=== PATIENT | female | born 1960 | race Caucasian/White ===

== ENCOUNTER → 2021-06-09 | Outpatient (CLI) | payer OTHER | END | disposition home or self-care (01) | LOC: LAB 11:17 → LAB SHORT 11:17 | DX: D22.62 Melanocytic nevi of left upper limb, including shoulder (principal) | CPT/HCPCS: 88305 ==

== ENCOUNTER 2024-08-28 05:50 | Emergency (ER) | payer OTHER ==
[~2024-08-28] VITALS: Ht 160 cm; Wt 61.2 kg
[2024-08-28 10:26] LABS: BASOPHILS ABSOLUTE AUTO 0.07 K/mm3 (0.00-0.23); BASOPHILS PERCENT AUTO 1 % (0-2); EOSINOPHILS ABSOLUTE AUTO 0.01 K/mm3 (0.00-0.68); EOSINOPHILS PERCENT AUTO 0 % (0-6); Hematocrit 44.4 % (33.0-51.0); Hemoglobin 16.3 g/dL (11.5-16.0); IMMATURE GRAN ABSOLUTE AUTO 0.04 K/mm3 (0.00-0.10); IMMATURE GRAN PERCENT AUTO 0 % (0-1); LYMPHOCYTES ABSOLUTE AUTO 1.57 K/mm3 (0.84-5.20); LYMPHOCYTES PERCENT AUTO 15 % (21-46); MONOCYTES ABSOLUTE AUTO 0.73 K/mm3 (0.16-1.47); MONOCYTES PERCENT AUTO 7 % (4-13); Mean Corpuscular HGB 34.6 pg (26.0-34.0); Mean Corpuscular HGB Conc 36.7 g/dL (31.5-36.5); Mean Corpuscular Volume 94 fL (80-100); Mean Platelet Volume 9.1 fL (9.1-12.4); NEUTROPHILS PERCENT AUTO 77 % (41-73); Platelet Count 337 K/mm3 (150-400); RDW Standard Deviation 45.5 fL (35.1-46.3); Red Blood Cell Count 4.71 M/mm3 (3.80-5.20); White Blood Cell Count 10.52 K/mm3 (4.00-11.30)
[2024-08-28 10:50] LABS: Bilirubin, Total 1.5 mg/dL (0.1-1.0); Bun/Creatinine Ratio 14.5 (12.0-20.0); Calcium, Blood 9.9 mg/dL (8.5-10.1); Creatinine, Blood 1.17 mg/dL (0.40-1.00); Globulin, Blood 3.9 g/dL (2.2-4.0); Magnesium, Blood 1.6 mg/dL (1.6-2.4); Potassium, Blood 2.9 mmol/L (3.5-5.5); Total Protein, Blood 7.9 g/dL (6.4-8.2)
[2024-08-28] MEDS ORDERED: METOPROLOL SUCC25 MG PO (11:37)
[2024-08-28] MEDS ORDERED: Lisinopril-Hct1 EAC4 PO (11:37)
[2024-08-28] MEDS ORDERED: PAXIL2010 PO (11:38)
[2024-08-28] MEDS ORDERED: Magnesium Sulf 2 GM/Water 50ML 50 ML IV ONE (11:40)
[2024-08-28] MEDS ORDERED: D5W-NS 1,000 ML IV SCH (11:40)
[2024-08-28] MEDS ORDERED: Potassium Chl 20MEQ/Water100ML 300 ML IV ONE (11:40)
[2024-08-28 12:36] LABS: Influenza A, PCR NEGATIVE (NEGATIVE); Influenza B, PCR NEGATIVE (NEGATIVE); Resp Syncytial Virus, PCR NEGATIVE (NEGATIVE); SARS-Cov-2 (COVID-19) PCR, MMC NEGATIVE (NEGATIVE)
[2024-08-28] MEDS ORDERED: Ondansetron HCl 2 MG / ML 2ML Vial IV ONE (13:15)
[2024-08-28] MEDS ORDERED: NS 1,000 ML IV ONE (13:49)
[2024-08-28] MEDS ORDERED: NS 1,000 ML IV SCH (14:00)
[2024-08-28] MEDS ORDERED: Ketorolac Tromethamine 30mg Vial IV ONE (14:20)
[2024-08-28] MEDS ORDERED: Gabapentin 300 MG Cap PO ONE (14:20)
[2024-08-28] MEDS ORDERED: GABA300 PO (15:20)
[2024-08-28] MEDS ORDERED: VALA500 PO (15:20)
[2024-08-28] MEDS ORDERED: ONDA4ODT MM (15:20)
[2024-08-28] MEDS ORDERED: PROM12.5S PR (15:20)
[2024-08-28] MEDS ORDERED: METO10 PO (15:20)
[2024-08-28] MEDS ORDERED: Potassium Chloride 20 MEQ TabCR PO ONE (16:00)
[2024-08-28 18:45] VITALS: BP 117/79
== END 2024-08-28 19:00 ==
LOC: ER 05:50
PROVIDERS: Physician Assistant
DX: C64.1 Malignant neoplasm of right kidney, except renal pelvis (principal); N17.9 Acute kidney failure, unspecified; E86.0 Dehydration; E87.6 Hypokalemia; N83.202 Unspecified ovarian cyst, left side; B00.1 Herpesviral vesicular dermatitis; R11.2 Nausea with vomiting, unspecified; K21.9 Gastro-esophageal reflux disease without esophagitis; I10 Essential (primary) hypertension; Z79.899 Other long term (current) drug therapy
CPT/HCPCS: 0241U; 71046; 74177; 76705; 80053; 83735; 85025; 93005; 93010; 96365-59; 96366; 96367; 96375; 99284-25; A9270; J1885; J3475; J3480; J7030; J7042; Q9967

== ENCOUNTER → 2024-09-09 | Outpatient (CLI) | payer OTHER ==
[~2024-09-09] MED LIST: CEPHALEXIN500 MG PO; GABA300 PO; Lisinopril-Hct1 EAC4 PO; METO10 PO; METOPROLOL SUCC25 MG PO; ONDA4ODT MM; PAXIL2010 PO; PROM12.5S PR; VALA500 PO
[2024-09-09 13:23] LABS: BASOPHILS ABSOLUTE AUTO 0.08 K/mm3 (0.00-0.23); BASOPHILS PERCENT AUTO 1 % (0-2); EOSINOPHILS ABSOLUTE AUTO 0.11 K/mm3 (0.00-0.68); EOSINOPHILS PERCENT AUTO 1 % (0-6); Hematocrit 41.6 % (33.0-51.0); Hemoglobin 15.2 g/dL (11.5-16.0); IMMATURE GRAN ABSOLUTE AUTO 0.01 K/mm3 (0.00-0.10); IMMATURE GRAN PERCENT AUTO 0 % (0-1); LYMPHOCYTES ABSOLUTE AUTO 1.83 K/mm3 (0.84-5.20); LYMPHOCYTES PERCENT AUTO 23 % (21-46); MONOCYTES ABSOLUTE AUTO 0.53 K/mm3 (0.16-1.47); MONOCYTES PERCENT AUTO 7 % (4-13); Mean Corpuscular HGB 34.5 pg (26.0-34.0); Mean Corpuscular HGB Conc 36.5 g/dL (31.5-36.5); Mean Corpuscular Volume 94 fL (80-100); NEUTROPHILS ABSOLUTE AUTO 5.34 K/mm3 (1.96-9.15); NEUTROPHILS PERCENT AUTO 68 % (41-73); Platelet Count 257 K/mm3 (150-400); RDW Standard Deviation 47.3 fL (35.1-46.3); Red Blood Cell Count 4.41 M/mm3 (3.80-5.20)
[2024-09-09 13:38] LABS: Albumin, Blood 3.5 g/dL (3.4-5.0); Albumin/Globulin Ratio 0.9 (0.8-1.8); Bilirubin, Total 1.5 mg/dL (0.1-1.0); Bun/Creatinine Ratio 13.6 (12.0-20.0); Calcium, Blood 9.4 mg/dL (8.5-10.1); Creatinine, Blood 1.32 mg/dL (0.40-1.00); Magnesium, Blood 1.3 mg/dL (1.6-2.4); Potassium, Blood 3.9 mmol/L (3.5-5.5); Total Protein, Blood 7.5 g/dL (6.4-8.2)
== END ==
LOC: LAB SHORT 13:18 → LAB 13:18
PROVIDERS: Family Medicine
DX: R53.83 Other fatigue (principal); N39.0 Urinary tract infection, site not specified; Z86.39 Personal history of other endocrine, nutritional and metabolic disease
CPT/HCPCS: 80053; 83735; 85025; 87077; 87086; 87186

== ENCOUNTER 2024-09-14 14:24 | Inpatient (IN) | payer OTHER ==
[~2024-09-14] VITALS: Ht 160 cm; Wt 54.2 kg
[~2024-09-14 14:24] MED LIST changes: -CEPHALEXIN500 MG PO; -K-Phos Origina500 MG PO; -MAGNESIUM OXID500 MG PO; -MIRT15ST PO; -POTA10T PO; -VITAMIN B-1100 M1 PO
[2024-09-14] MEDS ORDERED: NS 1,000 ML IV SCH ×3 (14:55→18:10)
[2024-09-14] MEDS ORDERED: CEPHALEXIN500 MG PO (15:01)
[2024-09-14] MEDS ORDERED: CefTRIAXone Sodium 1,000 MG in NS 100 ML IV ONE (15:45)
[2024-09-14] MEDS ORDERED: Ondansetron HCl 2 MG / ML 2ML Vial IV ONE (15:45)
[2024-09-14 17:13] LABS: Source, Urine Clean Catch
[2024-09-14 17:18] LABS: Appearance, Urine Clear (Clear); Bilirubin, Urine Neg (Neg); Blood, Urine 3+ (Neg); Color, Urine Amber (P-Yellow); Glucose Qualitative, Urine Neg (Neg); Ketones, Urine Neg (Neg); Leukocyte Esterase, Urine 2+ (Neg); Nitrite, Urine Neg (Neg); Protein, Urine 2+ (Neg); Specific Gravity, Urine 1.025 (1.003-1.022); Urobilinogen, Urine NORM (Normal)
[2024-09-14 17:24] LABS: Bacteria Few /hpf; Squamous Epithelial Cells Mod /hpf (Few)
[2024-09-14 17:25] LABS: Renal Epithelial Rare /hpf (0-Rare)
[2024-09-14] MEDS ORDERED: Potassium Chl 20MEQ/Water100ML 100 ML IV ONE (17:35)
[2024-09-14] MEDS ORDERED: Mag Sulfate 1 GM/D5% 100ML 100 ML IV ONE (17:35)
[2024-09-14] MEDS ORDERED: FLU VACC TS2024-25(6MOS UP)/PF 45 MCG/0.5 ML SYRINGE IM SCH (18:10)
[2024-09-14] MEDS ORDERED: Ondansetron HCl 2 MG / ML 2ML Vial IV PRN (18:10)
[2024-09-14] MEDS ORDERED: Zoledronic Acid 4 MG in NS 100 ML IV ONE (18:25)
[2024-09-14] MEDS ORDERED: Enoxaparin 30 MG/0.3 ML SYR SC SCH (19:00)
[2024-09-14] MEDS ORDERED: Calcitonin Salmon 200 IU/ML 2ML Vial SC SCH (20:00)
[2024-09-14 22:36] VITALS: BP 143/88
[2024-09-15 04:14] VITALS: BP 147/85
--- NOTE | 2024-09-15 04:25 | NUR ---
SHIFT SUMMARY: EDMOND IS A&OX4. VSS, NO ACUTE EVENTS THIS SHIFT. SHE IS A STANDBY ASSIST TO THE BATHROOM, NO EVENTS ON TELE, IV TO BILATERAL ACs PATENT, IV FLUIDS INFUSING PER ORDER. NPO ORDER IN PLACE, NO PO INTAKE SINCE ADMISSION TO THE FLOOR THIS SHIFT. SHE IS PLEASANT AND COOPERATIVE, USES THE CALL LIGHT APPROPRIATELY. SHE IS LYING IN BED WITH THE CALL LIGHT IN REACH, BED IN LOWEST POSITION. WILL GIVE REPORT TO DAY SHIFT RN.
[2024-09-15 04:57] LABS: Hematocrit 39.6 % (33.0-51.0); Hemoglobin 13.9 g/dL (11.5-16.0); Mean Corpuscular HGB 34.8 pg (26.0-34.0); Mean Corpuscular HGB Conc 35.1 g/dL (31.5-36.5); Mean Corpuscular Volume 99 fL (80-100); Mean Platelet Volume 10.9 fL (9.1-12.4); Platelet Count 69 K/mm3 (150-400); RDW Coefficient Variation 14.5 % (11.7-14.2); RDW Standard Deviation 52.2 fL (35.1-46.3); White Blood Cell Count 22.04 K/mm3 (4.00-11.30)
[2024-09-15 05:15] LABS: Albumin, Blood 2.6 g/dL (3.4-5.0); Albumin/Globulin Ratio 0.9 (0.8-1.8); Bilirubin, Total 2.4 mg/dL (0.1-1.0); Bun/Creatinine Ratio 23.7 (12.0-20.0); Creatinine, Blood 1.73 mg/dL (0.40-1.00); Potassium, Blood 3.4 mmol/L (3.5-5.5); Total Protein, Blood 5.6 g/dL (6.4-8.2)
[2024-09-15 05:35] LABS: Calcium, Blood 11.5 mg/dL (8.5-10.1)
[2024-09-15 06:56] LABS: BAND PERCENT MAN 2 % (0-8); BASOPHILS ABSOLUTE MAN 0.22 K/mm3 (0.00-0.23); BASOPHILS PERCENT MAN 1 % (0-2); EOSINOPHILS PERCENT MAN 0 % (0-6); LYMPHOCYTES ABSOLUTE MAN 0.88 K/mm3 (0.84-5.20); LYMPHOCYTES PERCENT MAN 4 % (21-46); MONOCYTES ABSOLUTE MAN 0.88 K/mm3 (0.16-1.47); MONOCYTES PERCENT MAN 4 % (4-13); NEUTROPHILS ABSOLUTE MAN 20.05 K/mm3 (1.96-9.15); SEG NEUTROPHILS PERCENT MAN 89 % (41-73); TOTAL CELLS COUNTED 100
[2024-09-15 07:17] VITALS: BP 149/83
[2024-09-15] MEDS ORDERED: Magnesium Sulf 2 GM/Water 50ML 50 ML IV STA ×2 (07:44→11:26)
[2024-09-15 08:43] LABS: Bilirubin, Direct 0.7 mg/dL (0.0-0.3); Bilirubin, Indirect 1.7 mg/dL (0.1-0.7); Bilirubin, Total 2.4 mg/dL (0.1-1.0); Phosphorus, Blood 1.9 mg/dL (2.5-4.9)
[2024-09-15] MEDS ORDERED: Gabapentin 100 MG Cap PO SCH (09:00)
[2024-09-15] MEDS ORDERED: Lactobacil 2-S.Thermo-Bifido 1 1 Cap PO SCH (09:00)
[2024-09-15] MEDS ORDERED: Metoprolol Succinate 25 MG TABCR PO SCH (09:00)
[2024-09-15 09:19] LABS: Magnesium, Blood 1.1 mg/dL (1.6-2.4)
[2024-09-15] MEDS ORDERED: Calcitonin Salmon 200 IU/ML 2ML Vial SC SCH (10:02)
[2024-09-15] MEDS ORDERED: Potassium Phosphate Dibasic 30 MM in Dextrose 5% 500 ML IV STA (14:43)
[2024-09-15 14:50] VITALS: BP 135/73
[2024-09-15] MEDS ORDERED: CefTRIAXone Sodium 1,000 MG in NS 100 ML IV SCH (16:00)
--- NOTE | 2024-09-15 17:12 | NUR ---
SHIFT SUMMARY A/O X4. ABLE TO AMBULATE TO BATHROOM WITH SBA. RUNNING ISOTONIC FLUIDS THIS SHIFT. RECEIVED 4 G TOTAL MAG THIS SHIFT, RECEIVING K PHOS AND ABX. STATES SHE FEELS BETTER THAN ON ADMISSION. ROOM AIR. TELE READS SINUS, NO CALLS OR CONCERNS NOTED. BLOOD CX NEG DAY 1. URINE CX GROWTH TOO SMALL TO IDENTIFY. HAD US RESULTED THIS AM. LABS ORDERED FOR AM DRAW. NO C/O PAIN OR NAUSEA. DIET ORDERED, NOT A LOT OF INTAKE THIS SHIFT, PATIENT NOT INTERESTED. DRINKING WELL. ABLE TO MAKE NEEDS KNOWN. CALL LIGHT IN REACH, CARES ONGOING
[2024-09-15 19:15] VITALS: BP 140/76
[2024-09-15] MEDS ORDERED: Acetaminophen 325 MG TABLET PO PRN (20:45)
--- NOTE | 2024-09-15 20:56 | NUR ---
THIS PHARMACEUTICAL OPERATOR CALLED ON-CALL HOSPITALIST, NEW ORDER RECEIVED FOR TYLENOL PRN. SEE EMAR.
[2024-09-16 04:14] VITALS: BP 130/69
[2024-09-16] MEDS ORDERED: LORazepam 0.5 MG Tab PO ONE (04:35)
--- NOTE | 2024-09-16 04:35 | NUR ---
PT C/O ANXIETY 05/29. THIS EMERGENCY ROOM CLINICIAN CALLED ON-CALL HOSPITALIST DR. MAX. NEW T-ORDER: "ATIVAN 0.5MG PO ONCE". ENTERED TO [employer], SEE EMAR. NO ADDITIONAL NEW ORDERS AT THIS TIME.
--- NOTE | 2024-09-16 04:40 | NUR ---
SHIFT SUMMARY PT IS A&O X4, PLEASANT, COOPERATIVE WITH CARE. @1718 PT C/O ANXIETY 05/29 AND REPORTS A RECENT HX OF PANIC ATTACKS. PT REPORTS STAYING AWAKE MOST OF THE NIGHT D/T ANXIETY. THIS MALE IMPERSONATOR CALLED ON-CALL HOSPITALIST . ONE TIME ORDER OF ATIVAN 0.5MG PO ENTERED TO [employer]. PT C/O 06/29 RIGHT FLANK& EPIGASTRIC PAIN. AT NEW ORDER WAS RECEIVED FROM ON-CALL HOSPITALIST FOR TYLENOL PRN. WILL ADMINISTER WHEN ATIVAN IS AN ACTIVE ORDER. NO PO INTAKE DURING THIS SHIFT.TELE: SR @17. NO ACUTE EVENTS DURING THIS SHIFT. BED AT THE LOWEST POSITION, CALL LIGHT W/I REACH. PT IS ABLE TO MAKE HER NEEDS KNOWN.
[2024-09-16 06:07] LABS: BASOPHILS ABSOLUTE AUTO 0.02 K/mm3 (0.00-0.23); BASOPHILS PERCENT AUTO 0 % (0-2); EOSINOPHILS ABSOLUTE AUTO 0.01 K/mm3 (0.00-0.68); EOSINOPHILS PERCENT AUTO 0 % (0-6); Hematocrit 33.1 % (33.0-51.0); Hemoglobin 11.8 g/dL (11.5-16.0); IMMATURE GRAN PERCENT AUTO 1 % (0-1); LYMPHOCYTES ABSOLUTE AUTO 1.26 K/mm3 (0.84-5.20); LYMPHOCYTES PERCENT AUTO 8 % (21-46); MONOCYTES ABSOLUTE AUTO 1.29 K/mm3 (0.16-1.47); MONOCYTES PERCENT AUTO 8 % (4-13); Mean Corpuscular HGB 34.9 pg (26.0-34.0); Mean Corpuscular HGB Conc 35.6 g/dL (31.5-36.5); Mean Corpuscular Volume 98 fL (80-100); Mean Platelet Volume 11.6 fL (9.1-12.4); NEUTROPHILS ABSOLUTE AUTO 12.89 K/mm3 (1.96-9.15); NEUTROPHILS PERCENT AUTO 83 % (41-73); RDW Coefficient Variation 14.7 % (11.7-14.2); Red Blood Cell Count 3.38 M/mm3 (3.80-5.20); White Blood Cell Count 15.57 K/mm3 (4.00-11.30)
[2024-09-16 06:13] LABS: Platelet Count 45 K/mm3 (150-400)
[2024-09-16 06:34] LABS: Albumin, Blood 2.3 g/dL (3.4-5.0); Albumin/Globulin Ratio 0.8 (0.8-1.8); Bilirubin, Total 2.3 mg/dL (0.1-1.0); Bun/Creatinine Ratio 30.7 (12.0-20.0); Creatinine, Blood 1.27 mg/dL (0.40-1.00); Magnesium, Blood 1.5 mg/dL (1.6-2.4); Phosphorus, Blood 1.7 mg/dL (2.5-4.9); Total Protein, Blood 5.3 g/dL (6.4-8.2)
[2024-09-16 06:35] LABS: Calcium, Blood 8.7 mg/dL (8.5-10.1)
--- NOTE | 2024-09-16 06:43 | NUR ---
CRITICAL LAB VALUE OF PLATELETS: 45. THIS PUBLIC HEALTH ANALYST NOTIFIED TOOL COORDINATORORQUIDEA TROY @8882, THEN CALLED AND NOTIFIED THE ON-CALL HOSPITALIST @8516. NO NEW ORDERS AT THIS TIME.
[2024-09-16 07:18] VITALS: BP 125/56
[2024-09-16] MEDS ORDERED: Potassium Chloride 10 Meq Tablet SA PO ONE (08:35)
[2024-09-16] MEDS ORDERED: Potassium Phosphate Dibasic 30 MM in Dextrose 5% 500 ML IV STA (08:36)
[2024-09-16] MEDS ORDERED: Magnesium Sulf 2 GM/Water 50ML 50 ML IV ONE (08:40)
--- NOTE | 2024-09-16 09:36 | NUR ---
Pt experienced emesis within 3 minutes after PO probiotic given at 0930. Given sprite.
[2024-09-16 15:16] VITALS: BP 124/69
--- NOTE | 2024-09-16 16:34 | NUR ---
Upon receiving a referral for spiritual care, I visited the patient. She tells me about her medical problems and the clinical plan going forward. She then talks the support she has from her 4 grown children (although they are out of the area or the state), her ex- and friends. She shares about her Hinduism heidi and how she has leaned into it more in recent years with a great result. 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 I provided grief support, gentle genetic counselor and prayer. She responded well and spoke of how the visit and prayer were very encouraging to her. I will continue to remain available to patient and family.
[2024-09-16] MEDS ORDERED: Multivitamins 1 Tab PO SCH (17:10)
[2024-09-16] MEDS ORDERED: Thiamine HCl 100 MG Tab PO SCH (17:10)
[2024-09-16 19:19] VITALS: BP 124/66
--- NOTE | 2024-09-16 20:04 | NUR ---
END OF SHIFT SUMMARY: A&Ox4. PLEASANT AND COOPERATIVE WITH CARE. CALLS APPROPRIATELY AND IS ABLE TO ADVOCATE NEEDS EFFECTIVELY. CONTINENT OF BOWEL AND BLADDER AND AMBULATES INDEPENDENTLY TO BATHROOM. MEDS [id number]-TIME WITH FLUIDS; DID STRUGGLE TO TAKE PO MEDS TODAY DUE TO NAUSEA. TELE SINUS. IV REPLACED DUE TO BEING PULLED. SEVERAL IV MEDICATIONS ORDERED TODAY; STILL CATCHING UP. BED IN LOWEST POSITION. CALL LIGHT WITHIN REACH. ALL NEEDS MET. REPORT TO ONCOMING NURSE.
[2024-09-17 03:22] VITALS: BP 127/76
--- NOTE | 2024-09-17 05:30 | NUR ---
ADMITTED 09/14/24: SEPTIC UTI, URINE CULTURE PENDING. AAOX4. SBA. TELE IN PLACE, NSR. C/O SOFIA, ELIUD HELPED. NEW DX RENAL CARCINOMA.
[2024-09-17 06:25] LABS: BASOPHILS ABSOLUTE AUTO 0.03 K/mm3 (0.00-0.23); BASOPHILS PERCENT AUTO 0 % (0-2); EOSINOPHILS ABSOLUTE AUTO 0.06 K/mm3 (0.00-0.68); EOSINOPHILS PERCENT AUTO 1 % (0-6); Hematocrit 29.7 % (33.0-51.0); Hemoglobin 10.5 g/dL (11.5-16.0); IMMATURE GRAN ABSOLUTE AUTO 0.05 K/mm3 (0.00-0.10); IMMATURE GRAN PERCENT AUTO 0 % (0-1); LYMPHOCYTES ABSOLUTE AUTO 1.35 K/mm3 (0.84-5.20); LYMPHOCYTES PERCENT AUTO 11 % (21-46); MONOCYTES ABSOLUTE AUTO 1.06 K/mm3 (0.16-1.47); MONOCYTES PERCENT AUTO 8 % (4-13); Mean Corpuscular HGB Conc 35.4 g/dL (31.5-36.5); Mean Corpuscular Volume 99 fL (80-100); NEUTROPHILS ABSOLUTE AUTO 10.36 K/mm3 (1.96-9.15); NEUTROPHILS PERCENT AUTO 80 % (41-73); Platelet Count 70 K/mm3 (150-400); RDW Coefficient Variation 14.6 % (11.7-14.2); RDW Standard Deviation 52.7 fL (35.1-46.3); White Blood Cell Count 12.91 K/mm3 (4.00-11.30)
[2024-09-17 06:47] LABS: Albumin, Blood 2.2 g/dL (3.4-5.0); Albumin/Globulin Ratio 0.7 (0.8-1.8); Bilirubin, Direct 0.6 mg/dL (0.0-0.3); Bilirubin, Indirect 0.6 mg/dL (0.1-0.7); Bilirubin, Total 1.2 mg/dL (0.1-1.0); Bun/Creatinine Ratio 24.8 (12.0-20.0); Creatinine, Blood 1.17 mg/dL (0.40-1.00); Globulin, Blood 3.1 g/dL (2.2-4.0); Magnesium, Blood 1.4 mg/dL (1.6-2.4); Phosphorus, Blood 1.7 mg/dL (2.5-4.9); Potassium, Blood 2.9 mmol/L (3.5-5.5); Total Protein, Blood 5.3 g/dL (6.4-8.2)
[2024-09-17 07:26] VITALS: BP 108/65
[2024-09-17] MEDS ORDERED: Magnesium Sulf 2 GM/Water 50ML 50 ML IV STA (08:45)
[2024-09-17] MEDS ORDERED: Potassium Phosphate Dibasic 30 MM in Dextrose 5% 500 ML IV STA (08:46)
[2024-09-17] MEDS ORDERED: Potassium Chloride 10 Meq Tablet SA PO ONE (09:00)
[2024-09-17 13:48] LABS: Albumin, Blood 2.3 g/dL (3.4-5.0); Anion Gap 11 mmol/L (3-11); Blood Urea Nitrogen 27 mg/dL (8-24); Bun/Creatinine Ratio 24.8 (12.0-20.0); CO2, Blood 25 mmol/L (21-32); Chloride, Blood 106 mmol/L (98-108); Creatinine, Blood 1.09 mg/dL (0.40-1.00); Glomerular Filtration Rate 57 (60-); Glucose, Blood 156 mg/dL (70-99); Magnesium, Blood 1.2 mg/dL (1.6-2.4); Phosphorus, Blood 2.9 mg/dL (2.5-4.9); Potassium, Blood 3.8 mmol/L (3.5-5.5); Sodium, Blood 138 mmol/L (136-145)
[2024-09-17] MEDS ORDERED: K-Phos Origina500 MG PO (13:58)
[2024-09-17] MEDS ORDERED: VITAMIN B-1100 M1 PO (13:59)
[2024-09-17] MEDS ORDERED: MAGNESIUM OXID500 MG PO (13:59)
[2024-09-17] MEDS ORDERED: POTA10T PO (14:00)
[2024-09-17] MEDS ORDERED: MIRT15ST PO (14:00)
--- NOTE | 2024-09-17 14:13 | NUR ---
Patient is lying in bed and resting. The room is dark at 1410 in the afternoon. Patient states that she is feeling better and may go home today and thought she would rest up. I provided prayer and encouragement. I allow her to go back to resting. Patient voiced appreciation
[2024-09-17 15:23] VITALS: BP 116/67
--- NOTE | 2024-09-17 17:38 | NUR ---
DISCHARGE SUMMARY: A&Ox4. PLEASANT AND COOPERATIVE WITH CARE. CALLS APPROPRIATELY AND IS ABLE TO ADVOCATE NEEDS EFFECTIVELY. CONTINENT OF BOWEL AND BLADDER AMBULATES INDEPENDENTLY WITHIN ROOM. MEDS WHOLE WTIH FLUIDS. TELE NORMAL SINUS. NO C/O PAIN OR DISCOMFORT TODAY ASIDE FROM SOME INDIGESTION EARLY IN SHIFT. MEDICATIONS FAXED TO [facility]. INSTRUCTED TO FOLLOW-UP WITH PCP AND UROLOGY ORDERED. LEFT FLOOR AT WITH ALL BELONGINGS AND DISCHARGE PACKET, ESCORTED BY , ALSO PROVIDING TRANSPORTATION VIA POV.
== END 2024-09-17 17:53 | disposition home or self-care (01) | DRG 640 ==
LOC: ER 14:24 → MEDS 18:05 → ERHOLD 18:05 → MEDS 22:33
PROVIDERS: Family Medicine; Student in an Organized Health Care Education/Training Program; ADMIT Internal Medicine
DX: E83.52 Hypercalcemia (principal); A41.59 Other Gram-negative sepsis; R65.20 Severe sepsis without septic shock; N17.9 Acute kidney failure, unspecified; N39.0 Urinary tract infection, site not specified; C64.1 Malignant neoplasm of right kidney, except renal pelvis; E87.20 Acidosis, unspecified; E83.42 Hypomagnesemia; K21.9 Gastro-esophageal reflux disease without esophagitis; E86.0 Dehydration; N18.2 Chronic kidney disease, stage 2 (mild); I12.9 Hypertensive chronic kidney disease with stage 1 through stage 4 chronic kidney disease, or unspecified chronic kidney disease; Z79.899 Other long term (current) drug therapy; E87.6 Hypokalemia; E80.6 Other disorders of bilirubin metabolism; D75.1 Secondary polycythemia; D69.6 Thrombocytopenia, unspecified
CPT/HCPCS: 36415; 71045; 76770; 80053; 80069; 81001; 82247; 82248; 83605; 83735; 84100; 84484; 85025; 87040; 87086; 93005; 93010; 96361; 96365; 96375; 99284-25; A9270; J0630; J0696; J1650; J2405; J3475; J3480; J3489; J7030; J7060

== ENCOUNTER → 2024-09-14 | Outpatient (CLI) | payer OTHER ==
[~2024-09-14] MED LIST changes: +K-Phos Origina500 MG PO; +MAGNESIUM OXID500 MG PO; +MIRT15ST PO; +POTA10T PO; +VITAMIN B-1100 M1 PO
[2024-09-14 12:52] LABS: Hematocrit 46.8 % (33.0-51.0); Hemoglobin 16.8 g/dL (11.5-16.0); Mean Corpuscular HGB 35.4 pg (26.0-34.0); Mean Corpuscular HGB Conc 35.9 g/dL (31.5-36.5); Mean Corpuscular Volume 99 fL (80-100); Mean Platelet Volume 10.5 fL (9.1-12.4); Platelet Count 166 K/mm3 (150-400); RDW Coefficient Variation 14.5 % (11.7-14.2); RDW Standard Deviation 52.7 fL (35.1-46.3); Red Blood Cell Count 4.74 M/mm3 (3.80-5.20); White Blood Cell Count 25.04 K/mm3 (4.00-11.30)
[2024-09-14 13:16] LABS: BAND PERCENT MAN 6 % (0-8); BASOPHILS PERCENT MAN 0 % (0-2); EOSINOPHILS PERCENT MAN 0 % (0-6); LYMPHOCYTES % ATYPICAL MANUAL 1 % (0-0); LYMPHOCYTES PERCENT MAN 1 % (21-46); MONOCYTES ABSOLUTE MAN 1.75 K/mm3 (0.16-1.47); MONOCYTES PERCENT MAN 7 % (4-13); NEUTROPHILS ABSOLUTE MAN 22.78 K/mm3 (1.96-9.15); SEG NEUTROPHILS PERCENT MAN 85 % (41-73); TOTAL CELLS COUNTED 100
[2024-09-14 13:45] LABS: Albumin, Blood 3.6 g/dL (3.4-5.0); Bilirubin, Total 2.5 mg/dL (0.1-1.0); Bun/Creatinine Ratio 15.2 (12.0-20.0); Creatinine, Blood 2.1 mg/dL (0.40-1.00); Globulin, Blood 3.6 g/dL (2.2-4.0); Magnesium, Blood 0.7 mg/dL (1.6-2.4); Potassium, Blood 3.1 mmol/L (3.5-5.5); Total Protein, Blood 7.2 g/dL (6.4-8.2)
== END ==
LOC: LAB 12:45 → LAB SHORT 12:45
PROVIDERS: Physician Assistant
DX: R11.2 Nausea with vomiting, unspecified (principal)
CPT/HCPCS: 80053; 83735; 85025

== ENCOUNTER → 2024-09-26 | Outpatient (CLI) | payer OTHER ==
[~2024-09-26] MED LIST changes: +CEPHALEXIN500 MG PO; +K-Phos Origina500 MG PO; +MAGNESIUM OXID500 MG PO; +MIRT15ST PO; +POTA10T PO; +VITAMIN B-1100 M1 PO
[2024-09-26 09:03] LABS: BASOPHILS ABSOLUTE AUTO 0.09 K/mm3 (0.00-0.23); BASOPHILS PERCENT AUTO 1 % (0-2); EOSINOPHILS ABSOLUTE AUTO 0.29 K/mm3 (0.00-0.68); EOSINOPHILS PERCENT AUTO 3 % (0-6); Hematocrit 33.9 % (33.0-51.0); Hemoglobin 11.7 g/dL (11.5-16.0); IMMATURE GRAN ABSOLUTE AUTO 0.05 K/mm3 (0.00-0.10); IMMATURE GRAN PERCENT AUTO 1 % (0-1); LYMPHOCYTES ABSOLUTE AUTO 2.54 K/mm3 (0.84-5.20); LYMPHOCYTES PERCENT AUTO 27 % (21-46); MONOCYTES ABSOLUTE AUTO 0.47 K/mm3 (0.16-1.47); MONOCYTES PERCENT AUTO 5 % (4-13); Mean Corpuscular HGB 34.7 pg (26.0-34.0); Mean Corpuscular HGB Conc 34.5 g/dL (31.5-36.5); Mean Corpuscular Volume 101 fL (80-100); Mean Platelet Volume 9.7 fL (9.1-12.4); NEUTROPHILS ABSOLUTE AUTO 5.87 K/mm3 (1.96-9.15); NEUTROPHILS PERCENT AUTO 63 % (41-73); Platelet Count 594 K/mm3 (150-400); RDW Coefficient Variation 13.9 % (11.7-14.2); RDW Standard Deviation 50.7 fL (35.1-46.3); Red Blood Cell Count 3.37 M/mm3 (3.80-5.20); White Blood Cell Count 9.31 K/mm3 (4.00-11.30)
[2024-09-26 09:11] LABS: Albumin, Blood 2.7 g/dL (3.4-5.0); Albumin/Globulin Ratio 0.7 (0.8-1.8); Bilirubin, Total 0.4 mg/dL (0.1-1.0); Bun/Creatinine Ratio 11.4 (12.0-20.0); Creatinine, Blood 1.32 mg/dL (0.40-1.00); Globulin, Blood 3.9 g/dL (2.2-4.0); Total Protein, Blood 6.6 g/dL (6.4-8.2)
== END ==
LOC: LAB SHORT 07:25 → LAB 07:25
PROVIDERS: Physician Assistant
DX: R11.0 Nausea (principal)
CPT/HCPCS: 80053; 85025

== ENCOUNTER 2024-11-03 13:38 | Inpatient (IN) | payer OTHER ==
[~2024-11-03] VITALS: Ht 160 cm; Wt 58.6 kg
[2024-11-03 14:29] LABS: BASOPHILS ABSOLUTE AUTO 0.13 K/mm3 (0.00-0.23); BASOPHILS PERCENT AUTO 2 % (0-2); EOSINOPHILS PERCENT AUTO 5 % (0-6); Hematocrit 43.3 % (33.0-51.0); Hemoglobin 15.3 g/dL (11.5-16.0); IMMATURE GRAN ABSOLUTE AUTO 0.03 K/mm3 (0.00-0.10); IMMATURE GRAN PERCENT AUTO 0 % (0-1); LYMPHOCYTES ABSOLUTE AUTO 2.56 K/mm3 (0.84-5.20); LYMPHOCYTES PERCENT AUTO 29 % (21-46); MONOCYTES ABSOLUTE AUTO 0.61 K/mm3 (0.16-1.47); MONOCYTES PERCENT AUTO 7 % (4-13); Mean Corpuscular HGB 34.6 pg (26.0-34.0); Mean Corpuscular HGB Conc 35.3 g/dL (31.5-36.5); Mean Corpuscular Volume 98 fL (80-100); Mean Platelet Volume 9.4 fL (9.1-12.4); NEUTROPHILS ABSOLUTE AUTO 5.21 K/mm3 (1.96-9.15); NEUTROPHILS PERCENT AUTO 58 % (41-73); Platelet Count 629 K/mm3 (150-400); RDW Coefficient Variation 14.2 % (11.7-14.2); RDW Standard Deviation 51.6 fL (35.1-46.3); Red Blood Cell Count 4.42 M/mm3 (3.80-5.20); White Blood Cell Count 8.94 K/mm3 (4.00-11.30)
[2024-11-03 14:39] LABS: Source, Urine Clean Catch
[2024-11-03 14:50] LABS: Albumin, Blood 3.6 g/dL (3.4-5.0); Albumin/Globulin Ratio 0.8 (0.8-1.8); Bilirubin, Total 0.7 mg/dL (0.1-1.0); Bun/Creatinine Ratio 15.9 (12.0-20.0); Calcium, Blood 12.4 mg/dL (8.5-10.1); Creatinine, Blood 1.89 mg/dL (0.40-1.00); Globulin, Blood 4.7 g/dL (2.2-4.0); Potassium, Blood 3.4 mmol/L (3.5-5.5); Total Protein, Blood 8.3 g/dL (6.4-8.2)
[2024-11-03 15:00] LABS: Appearance, Urine Hazy (Clear); Bilirubin, Urine Neg (Neg); Blood, Urine Neg (Neg); Color, Urine Yellow (P-Yellow); Glucose Qualitative, Urine Neg (Neg); Ketones, Urine Neg (Neg); Leukocyte Esterase, Urine 1+ (Neg); Nitrite, Urine Neg (Neg); Protein, Urine 2+ (Neg); Specific Gravity, Urine 1.025 (1.003-1.022); Urobilinogen, Urine NORM (Normal)
[2024-11-03 15:11] LABS: Amorphous Light (0-Heavy); Bacteria Many /hpf; Granular Casts 0-2 /lpf (0); Mucus Light (0-Heavy); Red Blood Cells, Urine 0-2 /hpf (0-2); Squamous Epithelial Cells Few /hpf (Few)
[2024-11-03 15:12] LABS: Calcium Oxalate Crystals Mod /hpf
[2024-11-03] MEDS ORDERED: NS 1,000 ML IV SCH ×2 (16:15→17:35)
[2024-11-03] MEDS ORDERED: Ondansetron HCl 2 MG / ML 2ML Vial IV PRN ×2 (17:35→18:10)
[2024-11-03] MEDS ORDERED: FLU VACC TS2024-25(6MOS UP)/PF 45 MCG/0.5 ML SYRINGE IM SCH (17:35)
[2024-11-03] MEDS ORDERED: Cyclobenzaprine HCl 10 MG Tab PO PRN (18:05)
[2024-11-03] MEDS ORDERED: LORazepam 2 MG/ML 1ML Injection IV PRN (18:15)
[2024-11-03] MEDS ORDERED: NS 500 ML IV ONE (19:00)
[2024-11-03] MEDS ORDERED: Potassium Chloride 20 MEQ TabCR PO ONE (19:00)
[2024-11-03] MEDS ORDERED: Cyclobenzaprine HCl 10 MG Tab PO ONE (19:00)
[2024-11-03] MEDS ORDERED: Metoclopramide HCl 5MG / ML 2ML Vial IV ONE (19:00)
[2024-11-03] MEDS ORDERED: Mirtazapine 15 MG SoluTab PO SCH (21:00)
[2024-11-03] MEDS ORDERED: Gabapentin 300 MG Cap PO SCH (21:00)
[2024-11-03 21:02] VITALS: BP 106/81
[2024-11-04 04:03] VITALS: BP 97/60
--- NOTE | 2024-11-04 05:45 | NUR ---
SHIFT SUMMARY NOC PT A/O X 4. INDEPENDENT/CONTINENT. PLEASANT AND COOPERATIVE WITH CARE. VSS. ADMIT FROM ED WITH DX OF MONA. PT HAD R NEPHRECTOMY PERFORMED 10/23/24 AT [facility]. PT HAS 4 LAP SITES ON RLQ/MIDLINE, 3 RLQ OPEN TO AIR, AND MIDLINE COVERED WITH TISSUE ADHESIVE AND SURGICAL DRESSING. PT HAS NOT HAD C/O OF N/V SINCE ADMIT TO UNIT. PT HOME RX HAD BEEN RECONCILED AND PT REPORTS ONLY TAKING LISONOPRIL/HYDRACLORATHIAZIDE, METOPROLOL, AND PAXIL CURRENTLY. PT HAS NS INFUSING @ 150 ML/HR. PT CURRENTLY RESTING WITH BED IN LOWEST POSITION, AND CALL LIGHT WITHIN REACH.
[2024-11-04 06:08] LABS: Hematocrit 33.8 % (33.0-51.0); Hemoglobin 11.5 g/dL (11.5-16.0); Mean Corpuscular HGB 34.1 pg (26.0-34.0); Mean Corpuscular Volume 100 fL (80-100); Mean Platelet Volume 9.7 fL (9.1-12.4); Platelet Count 452 K/mm3 (150-400); RDW Coefficient Variation 14.4 % (11.7-14.2); RDW Standard Deviation 52.9 fL (35.1-46.3); Red Blood Cell Count 3.37 M/mm3 (3.80-5.20); White Blood Cell Count 6.03 K/mm3 (4.00-11.30)
[2024-11-04 06:38] LABS: Magnesium, Blood 1.7 mg/dL (1.6-2.4)
[2024-11-04 06:45] LABS: Bun/Creatinine Ratio 17.2 (12.0-20.0); Creatinine, Blood 1.57 mg/dL (0.40-1.00); Potassium, Blood 3.5 mmol/L (3.5-5.5)
[2024-11-04 06:52] LABS: Calcium, Blood 9.2 mg/dL (8.5-10.1)
[2024-11-04 07:25] VITALS: BP 99/67
--- NOTE | 2024-11-04 08:50 | NUR ---
pt sitting up on the side of the bed eating breakfast, a/ox4, pleasant and coopertive with care, follows commands well, denies pain at this time, states she's feeling a lot better, lungs are clear t/o, resp even and unlabored, no cough noted, hrr, no edema noted, ppp+2, cap refill <3 sec, vs stable, afebrile, piv to rac site is clear and patent, btx4, abd flat soft nontender, voids without diff, but states no void since in hosp, assisted her to the bathroom as she thought she could at this time, skin has recent post op incisions to abd from recent right side nephrectomy, otherwise skin is c/w/d, maew, ambulates without diff, gait noted to be steady, gabriel, call light in reach.
[2024-11-04] MEDS ORDERED: PARoxetine HCl 20 MG Tab PO SCH (09:00)
[2024-11-04] MEDS ORDERED: Heparin Sodium 5000 Units/ML 1ML MDV SC SCH (09:00)
[2024-11-04 15:33] VITALS: BP 115/71
[2024-11-04] MEDS ORDERED: Enoxaparin 40 MG/0.4 ML SYR SC SCH (17:00)
--- NOTE | 2024-11-04 18:16 | NUR ---
pt states she is feeling better, has been up to the bathroom several times today, no acute changes, call light in reach.
[2024-11-04 19:09] VITALS: BP 111/67
--- NOTE | 2024-11-05 04:44 | NUR ---
SHIFT SUMMARY PT ALERT ORIENTED X 4 ABLE TO VERBALIZE NEEDS AMBULATES AD CHARLINE IN HER ROOM AND TO THE BATHROOM. NO C/O PAIN THIS SHIFT. VSS ON RA SATTING AT 100%. SHE HAS A HEALED MIDLINE INCISION FROM HER NEPHRECTOMY. SITE LOOKS GOOD. REMAINS ON NS AT 150. LABS TO BE DONE THIS AM. NO C/O N/V THIS SHIFT. RESTING IN BED AT THIS TIME WITH CALL LIGHT IN REACH
[2024-11-05 05:26] VITALS: BP 106/71
[2024-11-05 05:35] LABS: BASOPHILS ABSOLUTE AUTO 0.08 K/mm3 (0.00-0.23); BASOPHILS PERCENT AUTO 1 % (0-2); EOSINOPHILS PERCENT AUTO 8 % (0-6); Hematocrit 30.9 % (33.0-51.0); Hemoglobin 10.6 g/dL (11.5-16.0); IMMATURE GRAN ABSOLUTE AUTO 0.02 K/mm3 (0.00-0.10); IMMATURE GRAN PERCENT AUTO 0 % (0-1); LYMPHOCYTES ABSOLUTE AUTO 2.06 K/mm3 (0.84-5.20); LYMPHOCYTES PERCENT AUTO 34 % (21-46); MONOCYTES ABSOLUTE AUTO 0.48 K/mm3 (0.16-1.47); MONOCYTES PERCENT AUTO 8 % (4-13); Mean Corpuscular HGB 34.9 pg (26.0-34.0); Mean Corpuscular HGB Conc 34.3 g/dL (31.5-36.5); Mean Corpuscular Volume 102 fL (80-100); Mean Platelet Volume 9.2 fL (9.1-12.4); NEUTROPHILS ABSOLUTE AUTO 2.87 K/mm3 (1.96-9.15); NEUTROPHILS PERCENT AUTO 48 % (41-73); Platelet Count 356 K/mm3 (150-400); RDW Coefficient Variation 14.1 % (11.7-14.2); Red Blood Cell Count 3.04 M/mm3 (3.80-5.20); White Blood Cell Count 6.01 K/mm3 (4.00-11.30)
[2024-11-05 06:08] LABS: Bun/Creatinine Ratio 12.4 (12.0-20.0); Calcium, Blood 7.8 mg/dL (8.5-10.1); Creatinine, Blood 1.37 mg/dL (0.40-1.00); Potassium, Blood 3.2 mmol/L (3.5-5.5)
[2024-11-05 07:28] VITALS: BP 111/81
--- NOTE | 2024-11-05 09:00 | NUR ---
pt laying in bed awake, a/ox4, pleasant and cooperative with care, follows commands well, denies pain, lungs are clear t/o, resp even and unlabored, no cough noted, hrr, no edema noted, ppp+2, cap refill<3 sec, vs stable, afebrile, piv to rac site is clear and patent, btx4, abd flat soft nontender, voids without diff, skin has healing surgical incisions to mid abd and right side, no s/s of infection noted, steri strips in place, maew, up ad ana cristina in room gait noted to be steady, gabriel, call light in reach.
[2024-11-05] MEDS ORDERED: CYCL10 PO (12:46)
[2024-11-05] MEDS ORDERED: MIRT15ST PO (12:47)
--- NOTE | 2024-11-05 14:13 | NUR ---
DISCHARGE/SUMMARY PT DISCHARGED TO HOME, PT VERBALZED UNDERSTANDING OF DISCHARGE INSTRUCTIONS REGARDING MEDICATIONS AND FOLLOW UP, PT DECLINED A WHEELCHAIR AND WAS ABLE TO AMBULATE SAFELY TO THE ELEVATOR WITH HER SPOUSE
[2024-11-05 23:46] LABS: VITAMIN D,1,25-DIHYDROXY 22.2 pg/mL (19.9-79.3)
== END 2024-11-05 13:19 | disposition home or self-care (01) | DRG 684 ==
LOC: ER 13:38 → MEDS 13:39 → ERHOLD 13:39 → MEDS 20:58
PROVIDERS: Internal Medicine; Nurse Practitioner Acute Care; Physician Assistant; ADMIT Student in an Organized Health Care Education/Training Program
DX: N17.9 Acute kidney failure, unspecified (principal); E87.6 Hypokalemia; E83.52 Hypercalcemia; Z85.528 Personal history of other malignant neoplasm of kidney; Z90.5 Acquired absence of kidney; M54.9 Dorsalgia, unspecified; I12.9 Hypertensive chronic kidney disease with stage 1 through stage 4 chronic kidney disease, or unspecified chronic kidney disease; N18.30 Chronic kidney disease, stage 3 unspecified; E86.0 Dehydration; K21.9 Gastro-esophageal reflux disease without esophagitis; Z98.890 Other specified postprocedural states
CPT/HCPCS: 36415; 74176; 80048; 80053; 81001; 82306; 82652; 83690; 83735; 83970; 84100; 85025; 85027; 87086; 96372; 96374; 99285-25; A9270; G0378; J1644; J1650; J2405; J2765; J7030; J7040

== ENCOUNTER → 2025-01-27 | Outpatient (CLI) | payer OTHER ==
[~2025-01-27] MED LIST changes: +CYCL10 PO
[2025-01-27 15:54] LABS: Microalbumin, Urine Quant. 9.7 mg/L (0.000-20.000); Protein, Urine Quantitative 20.9 mg/dL (0.0-11.9)
[2025-01-31 22:41] LABS: HOURS COLLECTED 24 hr; TOTAL VOLUME 500 mL
== END ==
LOC: LAB SHORT 12:10 → LAB 12:10
PROVIDERS: Internal Medicine Nephrology
DX: N18.30 Chronic kidney disease, stage 3 unspecified (principal); D63.1 Anemia in chronic kidney disease; N25.81 Secondary hyperparathyroidism of renal origin; E55.9 Vitamin D deficiency, unspecified; E78.00 Pure hypercholesterolemia, unspecified; N39.0 Urinary tract infection, site not specified; R76.9 Abnormal immunological finding in serum, unspecified; R94.5 Abnormal results of liver function studies; R94.6 Abnormal results of thyroid function studies; D51.8 Other vitamin B12 deficiency anemias; G60.9 Hereditary and idiopathic neuropathy, unspecified; D50.9 Iron deficiency anemia, unspecified
CPT/HCPCS: 82043; 82570; 84156; 84166; 86335

== ENCOUNTER → 2025-02-27 | Outpatient (CLI) | payer OTHER | LOC: LAB 13:45 → LAB SHORT 13:45 | DX: L03.211 Cellulitis of face (principal) | CPT/HCPCS: 87070; 87147; 87205 ==

== ENCOUNTER 2025-07-14 20:26 | Emergency (ER) | payer OTHER ==
[~2025-07-14] VITALS: Ht 160 cm; Wt 59.0 kg
[2025-07-14 21:06] LABS: BASOPHILS ABSOLUTE AUTO 0.06 K/mm3 (0.00-0.23); BASOPHILS PERCENT AUTO 1 % (0-2); EOSINOPHILS ABSOLUTE AUTO 0.10 K/mm3 (0.00-0.68); EOSINOPHILS PERCENT AUTO 1 % (0-6); Hematocrit 41.4 % (33.0-51.0); Hemoglobin 14.9 g/dL (11.5-16.0); IMMATURE GRAN ABSOLUTE AUTO 0.04 K/mm3 (0.00-0.10); IMMATURE GRAN PERCENT AUTO 0 % (0-1); LYMPHOCYTES ABSOLUTE AUTO 1.91 K/mm3 (0.84-5.20); LYMPHOCYTES PERCENT AUTO 15 % (21-46); MONOCYTES ABSOLUTE AUTO 0.57 K/mm3 (0.16-1.47); MONOCYTES PERCENT AUTO 5 % (4-13); Mean Corpuscular HGB Conc 36.0 g/dL (31.5-36.5); Mean Corpuscular Volume 98 fL (80-100); NEUTROPHILS ABSOLUTE AUTO 9.95 K/mm3 (1.96-9.15); NEUTROPHILS PERCENT AUTO 79 % (41-73); NRBC ABSOLUTE 0.00 K/mm3 (0.00-0.02); NRBC Auto 0.0 /100 WBC (0.0-0.2); Platelet Count 610 K/mm3 (150-400); RDW Coefficient Variation 16.6 % (11.7-14.2); RDW Standard Deviation 60.2 fL (35.1-46.3)
[2025-07-14 21:30] LABS: Alanine Aminotransfer (ALT/SGP 31.0 U/L (12-78); Albumin, Blood 3.1 g/dL (3.4-5.0); Albumin/Globulin Ratio 0.7 (0.8-1.8); Anion Gap 12.0 mmol/L (3-11); Aspartate Aminotrans (AST/SGOT 22.0 U/L (12-37); Bilirubin, Total 0.9 mg/dL (0.1-1.0); Blood Urea Nitrogen 10.0 mg/dL (8-24); CO2, Blood 26.0 mmol/L (21-32); Calcium, Blood 10.8 mg/dL (8.5-10.1); Chloride, Blood 100.0 mmol/L (98-108); Creatinine, Blood 1.16 mg/dL (0.40-1.00); Globulin, Blood 4.6 g/dL (2.2-4.0); Glucose, Blood 152.0 mg/dL (70-99); Potassium, Blood 3.3 mmol/L (3.5-5.5); Sodium, Blood 135.0 mmol/L (136-145); Total Protein, Blood 7.7 g/dL (6.4-8.2)
[2025-07-14] MEDS ORDERED: NS 1,000 ML IV SCH (23:25)
[2025-07-14] MEDS ORDERED: Potassium Chl 20MEQ/Water100ML 100 ML IV ONE (23:25)
[2025-07-14] MEDS ORDERED: Pantoprazole Sodium 40 MG Injection IV ONE (23:25)
[2025-07-14] MEDS ORDERED: FentaNYL Citrate 50 MCG/ML 2 ML Injection IV ONE (23:25)
[2025-07-15 00:17] LABS: pH Blood Venous 7.58 (7.34-7.37)
[2025-07-15] MEDS ORDERED: ONDA4ODT MM (03:44)
[2025-07-15] MEDS ORDERED: RX Prepack 6 Tabs Oxycodone 5mg UD ONE (03:45)
[2025-07-15 04:01] VITALS: BP 135/92
== END 2025-07-15 04:00 | disposition home or self-care (01) ==
LOC: ER 20:26
PROVIDERS: Emergency Medicine; Student in an Organized Health Care Education/Training Program
DX: K85.90 Acute pancreatitis without necrosis or infection, unspecified (principal); K86.3 Pseudocyst of pancreas; E87.6 Hypokalemia; E87.20 Acidosis, unspecified; I10 Essential (primary) hypertension; Z85.528 Personal history of other malignant neoplasm of kidney; Z90.5 Acquired absence of kidney; Z79.899 Other long term (current) drug therapy
CPT/HCPCS: 71045; 74177; 76705; 80053; 82330; 82803; 83605; 83690; 85025; 93005; 93010; 96361; 96365-59; 96366-59; 96375; 99284-25; A9270; J2470; J3010; J3480; J7030; Q9967